=== PATIENT | female | born 1960 | race Caucasian/White ===

== ENCOUNTER 2018-08-02 09:06 | Day surgery (SDC) | payer OTHER ==
[2018-08-02] MEDS ORDERED: ASPIRIN EC 325 MG TAB PO ONE (09:10)
[2018-08-02] MEDS ORDERED: FAMOTIDINE 20 MG TAB PO ONE (09:10)
[2018-08-02] MEDS ORDERED: NS 1,000 ML IV ONE (09:10)
[2018-08-02] MEDS ORDERED: DIAZEPAM 5 MG TAB PO ONE (09:10)
[2018-08-02] MEDS ORDERED: diphenhydrAMINE 25 MG CAP PO ONE (09:10)
--- NOTE | 2018-08-02 10:06 | PDANEPAE ---
ANE History of Present Illness MARJ ANE Past Medical History - Cardiovascular History Hx CHF / Valvular Disease: Yes ANE Review of Systems Review of Systems: palpitations, sob - Exercise capacity Exercise capacity: <4 METS ANE Patient History - Allergies Allergies/Adverse Reactions: No Known Allergies Allergy (Unverified 08/02/18 09:09) - Home Medications Home medications: home medication list seen and reviewed - Smoking Hx Smoking Status: Heavy smoker ANE Labs/Vital Signs - Vital Signs Vital Signs: reviewed preoperatively; see RN documention for details ANE Physical Exam - Airway Neck exam: FROM Mallampati Score: Class 1 Mouth exam: normal dental/mouth exam - Pulmonary Pulmonary: no respiratory distress - Cardiovascular Cardiovascular: regular rate and rhythym - ASA Status ASA Status: III ANE Anesthesia Plan Total IV Anesthesia: Yes
--- NOTE | 2018-08-02 10:35 | PDHPUP ---
History & Physical Update H&P update statement: This history and physical update is based on an assessment of the patient which was completed after admission or registration (within 24 hours), but prior to the surgery/procedure. Giulia presents for MARJ and LHC in anticipation of MV repair with Dr. Chairez in [facility] setting of MVP with severe MR. Risks and benefits of MARJ and LHC discussed in detail. Consents signed. H&P update: H&P reviewed & patient examined, no change in patient's condition since H&P completed
[2018-08-02] MEDS ORDERED: LIDOCAINE 1% 300 MG/30 ML SDV ONE (10:43)
[2018-08-02] MEDS ORDERED: IOPAMIDOL (ISOVUE-370) 150 ML BTL IV ONE (10:44)
[2018-08-02] MEDS ORDERED: LIDOCAINE 2% 5 ML SDV ONE (11:04)
[2018-08-02] MEDS ORDERED: PROPOFOL/EMULSION 500 MG/50 ML BOTTLE IV ONE ×4 (11:04→12:15)
[2018-08-02 11:12] LABS: INR 1.02 (0.83-1.16)
[2018-08-02 11:15] LABS: PLATELET COUNT 165 10^3/uL (150-400)
[2018-08-02] MEDS ORDERED: PROPOFOL 200 MG/20 ML VIAL ONE (11:51)
[2018-08-02] MEDS ORDERED: HYDROCODONE/APAP 5/325 TAB PO PRN (12:30)
[2018-08-02] MEDS ORDERED: ATROPINE SULFATE 1 MG/10 ML SYR IVP PRN (12:30)
[2018-08-02] MEDS ORDERED: OXYCODONE/APAP 5/325 TAB PO PRN (12:30)
[2018-08-02] MEDS ORDERED: NITROGLYCERIN 0.4 MG BTL SL PRN (12:30)
[2018-08-02] MEDS ORDERED: ONDANSETRON 4 MG/2 ML VIAL IVP PRN (12:30)
--- NOTE | 2018-08-02 13:12 | CPR ---
[f rep st] NONINVASIVE CARDIAC PROCEDURE REPORT DATE OF PROCEDURE: 08/02/2018 PROCEDURE PERFORMED: Transesophageal echocardiogram. INDICATION FOR PROCEDURE: Mitral valve prolapse with severe mitral regurgitation in anticipation of minimally invasive robotically assisted mitral valve repair. DESCRIPTION OF PROCEDURE: After informed consent was obtained for transesophageal echocardiogram, bi te block was placed. The patient was sedated with propofol with the assistance of Anesthesia. Once appropriate level of sedation was achieved, MARJ probe was passed without incident. MARJ probe was use d to take images of the mitral valve cue 30 degrees in 180-degree arc. Please see echo report for fu ll details. Patient tolerated the procedure well. There were no postoperative complications. MARJ probe was enrike michaela without incident. FINDINGS: 1. P2 and P3 posterior leaflet prolapse with severe mitral regurgitation with myxomatous mitral valv e. 2. Severe left atrial enlargement. /[id number]/MODL
--- NOTE | 2018-08-02 13:17 | CPIP ---
[f rep st] INVASIVE CARDIAC PROCEDURE DATE OF PROCEDURE: 08/02/2018 PROCEDURE: Cardiac catheterization. INDICATION FOR PROCEDURE: Preoperative evaluation in anticipation of mitral valve repair in the sett ing of mitral valve prolapse and severe mitral regurgitation. DESCRIPTION OF PROCEDURE: After informed consent was obtained for left heart catheterization, the francisco abraham was brought to the cardiac catheterization lab where she was prepped and draped in sterile fash ion. Using 1% lidocaine, the right groin was anesthetized. Using the micropuncture and modified Ayanna polina technique, 6-Bur[place] catheter was placed in the right common femoral artery without complicatio ns. A JL4 catheter was initially used to cannulate the left main. This was unsuccessful. This was exchanged over a guidewire for a JL3.5 catheter. JL3.5 catheter was used to cannulate the left main. Images of the left coronary anatomy were obtained in multiple projections. JL3.5 catheter was exch anged over a guidewire for JR4 catheter. JR4 catheter was used to cannulate the right coronary arter y. JR4 catheter was used to take images of the right coronary anatomy in multiple projections. JR c atheter was exchanged over a guidewire for angled pigtail catheter. Angled pigtail catheter was used to cross the aortic valve. Left ventriculogram was performed. LVEDP was assessed. There was no ev idence of gradient on pull-back. Angled pigtail catheter was removed over a guidewire. Right common femoral artery angiography was obtained demonstrating appropriate placement of the sheath appropriat e for Angio-Seal deployment. Patient underwent successful Angio-Seal deployment without evidence of hematoma. FINDINGS: 1. Left main normal size and caliber. Bifurcates into left anterior descending and left circumflex coronary artery. 2. Left anterior descending is a large-caliber vessel. There are medium-sized 1st and 2nd diagonal branches. There is no evidence of coronary disease within the left anterior descending or diagonal b ranches. 3. Circumflex vessel is a nondominant vessel. There is a large 1st obtuse marginal branch. There i s no evidence of coronary disease within the circumflex or obtuse marginal branch. 4. Right coronary artery is a dominant vessel that bifurcates into PDA and PLV branch. There is no evidence of coronary disease within the right coronary artery. HEMODYNAMICS: LVEF 65% to 70%. LVEDP 9 mmHg. Aortic valve gradient none. CONCLUSION: 1. Normal coronary arteries. 2. Normal left ventricular function. Normal left ventricular end-diastolic pressure at 9 mmHg. 3. Successful Angio-Seal deployment. /[id number]/MODL
--- NOTE | 2018-08-02 17:32 | ECHO ---
[email or web address] [address] Main: [phone] Echocardiography Examination Transesophageal Name: JOSSY BOTELLO MR#: [id number] Study Date: 08/02/2018 Study Time: 11:20 AM Date of : 1960 Age: 58 year(s) Height: ( ) Weight: ( ) BSA: Gender: Female Examination: MARJ Contrast: Image Quality: Adequate Rhythm: Heart Rate: BP: / Indication: Eval Mitral Valve Procedure Staff Referring Physician: Tank Pumper Panelboard: Ava Simon TAYLER Reading Physician: Anibal Escalante MD Requesting Provider: Ordering Physician: Anibal Escalante Indication: Eval Mitral Valve Acute complication: None Measurements Additional Vessels AV/MV Label Value Normal Value Label Value Normal Value AoAsc 3 cm AV PGmax 4 mmHg AV Vmax 1 m/s Conclusions Left Ventricle: EF range is estimated at 60 % - 65 %. Left Atrium: The left atrium is mildly dilated. Mitral Valve: Prolapse of P1 and P2. Thickened myxomatous mitral valve. Seveve eccentric jete of MR. Severe mitral regurgitation. Tricuspid Valve: Mild tricuspid regurgitation. Pericardium: Patient: JOSSY BOTELLO Study Date: 08/02/2018 Page 1 of 2 11:20 AM No pericardial effusion. Findings Left Ventricle: Left ventricle is normal in size. Normal global systolic left ventricular function. EF range is estimated at 60 % - 65 %. Right Ventricle: Right ventricular systolic function is normal. Left Atrium: The left atrium is mildly dilated. Left Atrium Appendage: Good color flow doppler in the left atrial appendage. No thrombus is identified. IAS: Normal appearing atrial septum. Mitral Valve: Prolapse of P1 and P2. Thickened myxomatous mitral valve. Seveve eccentric jete of MR. Severe mitral regurgitation. There is mitral thickening. There is mitral valve prolapse. 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 Aortic leaflets are structurally normal. Trivial aortic regurgitation is present. There is no aortic stenosis. Tricuspid Valve: Tricuspid valve leaflets are structurally normal. Mild tricuspid regurgitation. Pulmonic Valve: Pulmonic leaflets are normal in appearance. No significant pulmonic valve regurgitation is evident. Aorta: The ascending aorta measures 3.0 cm. Ascending aorta is normal in size. Descending aorta is normal in size. Pericardium: No pericardial effusion. Exam Details Procedure Ordered: MARJ Procedure Status: Routine study Image Quality: Adequate Consent: Risks, alternatives of procedure explained to patient, informed consent obtained Probe Insertion: Attending insurance sales manager Facility Location: [employer] (No Signature Object) Patient: JOSSY BOTELLO Study Date: 08/02/2018 Page 2 of 2 11:20 AM [id number]
--- NOTE | 2018-08-03 15:16 | CPEKG ---
Test Reason : OPEN Blood Pressure : / mmHG Vent. Rate : 092 BPM Atrial Rate : 093 BPM P-R Int : 139 ms QRS Dur : 077 ms QT Int : 372 ms P-R-T Axes : 060 046 031 degrees QTc Int : 461 ms Sinus rhythm Confirmed by Joanne Campos ([id number]) on 08/03/2018 3:16:24 PM Referred By: Anibal Escalante Confirmed By:Joanne Campos
--- NOTE | 2018-08-06 09:57 | POSTANESTH ---
Post Anesthetic Evaluation Cardiovascular Status: Similar to Pre-Op Cond Respiratory Status: Similar to Pre-op Cond. Level of Consciousness/Mental Status: Can Participate in Eval, Mildly Sleepy, Arousable Pain Control: Adequate, Prn Tx Ordered Nausea/Vomiting Control: Adequate, Prn Tx Ordered Complications Possibly Related to Anesthesia: None Noted
== END 2018-08-02 16:30 | disposition home or self-care (01) ==
LOC: FCATH 09:06
PROVIDERS: ATTEND Internal Medicine Cardiovascular Disease
PROC: B2111ZZ Fluoroscopy of Multiple Coronary Arteries using Low Osmolar Contrast (ICD-10-PCS; principal; 2018-08-02)
PROC: B2151ZZ Fluoroscopy of Left Heart using Low Osmolar Contrast (ICD-10-PCS; principal; 2018-08-02)
PROC: 4A023N8 Measurement of Cardiac Sampling and Pressure, Bilateral, Percutaneous Approach (ICD-10-PCS; principal; 2018-08-02)
PROC: B245ZZ4 Ultrasonography of Left Heart, Transesophageal (ICD-10-PCS; principal; 2018-08-02)
DX: Z01.810 Encounter for preprocedural cardiovascular examination (principal); I34.0 Nonrheumatic mitral (valve) insufficiency; I47.2 Ventricular tachycardia; I47.1 Supraventricular tachycardia; F17.210 Nicotine dependence, cigarettes, uncomplicated; Z82.49 Family history of ischemic heart disease and other diseases of the circulatory system
CPT/HCPCS: C1760; J1644; J2704; Q9967

== ENCOUNTER 2018-09-10 06:02 | Inpatient (IN) | payer OTHER ==
[~2018-09-10 06:02] MED LIST: CARDIOPLEGIC SOLUTION 1,052.8 ML PF ONE; INSULIN REGULAR HUMAN 100 UNIT in NS 100 ML IV ONE; MANNITOL 25% 12.5 GM/50 ML VIAL IVP ONE; NOREPINEPHRINE BITARTRATE 16 MG in NS 250 ML IV ONE; PHENYLEPHRINE HCL 50 MG in NS 250 ML IV ONE
[2018-09-10] MEDS ORDERED: DOBUTamine/DEXTROSE 250 ML IV ONE (06:41)
[2018-09-10] MEDS ORDERED: niCARdipine/NACL 200 ML IV ONE (06:41)
[2018-09-10] MEDS ORDERED: CITRATE DEXTROSE SOLN 500 ML BAG MISC ONE (06:41)
[2018-09-10] MEDS ORDERED: LIDOCAINE 1% 2 ML INJ ID PRN (06:41)
[2018-09-10] MEDS ORDERED: ceFAZolin 2 GM/DEXTROSE 100 ML IV ONE (06:41)
[2018-09-10] MEDS ORDERED: AMINOCAPROIC ACID 5 GM/20 ML VIAL IV ONE (06:41)
[2018-09-10] MEDS ORDERED: LR 1,000 ML IV ONE (06:42)
--- NOTE | 2018-09-10 06:54 | PDGENHP ---
History and Physical - Chief Complaint elective cardiac surgery - History of Present Illness This is a pleasant healthy female who presents today for elective mitral valve surgery. She was evaluated in full consultation in our clinic on 07/26/18. TTE with MVP and severe MR and an EF 60-65%. At that time, it was noted that she had intermittent episodes of lightheadedness and dizziness with rapid, regular heartbeat lasting several seconds. ZIO patch monitor without atrial fibrillation but with 33 runs of symptomatic SVT and an episode of 10-beat NSVT. [facility] without CAD. No changes to her health since seen in clinic. She had a friend pass away after heart surgery this past week which has added anxiety. History Information - Allergies/Home Medication List Allergies/Adverse Reactions: No Known Allergies Allergy (Verified 08/28/18 14:51) Home Medications: C/E/Zn/Cu/OM3/DHA/EPA/LUT/ZEAX [Preservision Areds 2 Softgel] 2 each PO DAILY [Last Taken Unknown] Multivitamins [Multivitamin (*)] 1 each PO DAILY 08/28/18 [Last Taken Unknown] I have personally reviewed and updated: family history, medical history, social history, surgical history - Surgical History Reports: no pertinent surgical hx - Family History Additional family history: family history of CAD - Social History Smoking Status: Former smoker (recently quit) Review of Systems Review of Systems: ROS: 2-9 pt reviewed & negative except for what was stated in HPI & below Physical Exam Physical Exam: Temp Pulse Resp BP Pulse Ox 37.1 C 78 16 134/87 H 95 09/10/18 06:46 09/10/18 06:46 09/10/18 06:46 09/10/18 06:46 09/10/18 06:46 Constitutional: no apparent distress, appears nourished Eyes: PERRL Ears, Nose, Mouth, Throat: moist mucous membranes, hearing normal, ears appear normal Cardiovascular: systolic murmur Respiratory: no respiratory distress, no rales or rhonchi Gastrointestinal: soft, non-tender abdomen Skin: warm, normal color Neurologic: AAOx3, sensation intact bilaterally Psychiatric: interacting appropriately, anxious Lab Data & Imaging Review Patient ABO/Rh O POSITIVE 09/08/18 11:58 Antibody Screen NEGATIVE 09/08/18 11:58 Imaging Review: [facility] 08/02/18 Normal coronary arteries Normal LVEF AMRJ 08/02/18 P2&P3 posterior leaflet prolapse with severe MR/myxomatous MV Severe LAE EKG 08/02/18 NSR Assessment & Plan Assessment: Severe MR w preserved EF Severe LAE SVT NSVT Tobacco use disorder, recently quit Clean coronaries History of blood disorder Plan: Elective robotic assisted MVR/R (tissue) with Dr. Copeland
[2018-09-10] MEDS ORDERED: MILRINONE/DEXTROSE/100 ML BAG IV ONE (07:01)
[2018-09-10] MEDS ORDERED: AMINOCAPROIC ACID 5 GM/20 ML VIAL ONE ×2 (07:01→07:04)
[2018-09-10] MEDS ORDERED: CALCIUM CHLORIDE 1 GM/10 ML INJ ONE ×2 (07:01→07:03)
[2018-09-10] MEDS ORDERED: PROTAMINE SULFATE 50 MG/5 ML VIAL IVP ONE (07:01)
[2018-09-10] MEDS ORDERED: DOPamine/DEXTROSE 400 MG/250 ML BAG IV ONE (07:02)
[2018-09-10] MEDS ORDERED: HEPARIN 10,000 UNIT/10 ML MDV (1,000 UNIT/ML) ONE ×2 (07:02→07:04)
[2018-09-10] MEDS ORDERED: ADENOSINE 6 MG/2 ML VIAL ONE (07:02)
[2018-09-10] MEDS ORDERED: NA BICARBONATE 50 MEQ/50 ML VIAL ONE (07:02)
[2018-09-10] MEDS ORDERED: niCARdipine/NACL/200 ML BAG IV ONE ×2 (07:02→16:12)
[2018-09-10] MEDS ORDERED: AMIODARONE HCL 150 MG/3 ML VIAL ONE ×2 (07:02→07:04)
[2018-09-10] MEDS ORDERED: ceFAZolin 1 GM VIAL ONE (07:03)
[2018-09-10] MEDS ORDERED: ALBUMIN 5% 250 ML BOTTLE IV ONE ×2 (07:03→23:50)
[2018-09-10] MEDS ORDERED: NITROGLYCERIN/D5W 50 MG/250 ML BOTTLE IV ONE (07:03)
[2018-09-10] MEDS ORDERED: MAGNESIUM SULFATE 1 GM/2 ML VIAL ONE (07:04)
[2018-09-10] MEDS ORDERED: LIDOCAINE 2% 100 MG/5 ML SYR ONE (07:04)
[2018-09-10] MEDS ORDERED: CITRATE DEXTROSE SOLN 500 ML BAG ONE (07:04)
[2018-09-10] MEDS ORDERED: methylPREDNISolone SOD SUCC 1 GM/8 ML VIAL ONE (07:05)
[2018-09-10] MEDS ORDERED: MIDAZOLAM 2 MG/2 ML VIAL IVP ONE (07:30)
--- NOTE | 2018-09-10 07:31 | PDANEPAE ---
ANE History of Present Illness here for robotic mitral valve repair ANE Past Medical History - Cardiovascular History Hx Hypertension: No Hx Arrhythmias: No Hx Chest Pain: No Hx Coronary Artery / Peripheral Vascular Disease: No Hx CHF / Valvular Disease: Yes Hx Palpitations: No - Pulmonary History Hx COPD: No Hx Asthma/Reactive Airway Disease: No Hx Recent Upper Respiratory Infection: No Hx Oxygen in Use at Home: No Hx Sleep Apnea: No Sleep Apnea Screening Result - Last Documented: Negative - Neurologic History Hx Cerebrovascular Accident: No Hx Seizures: No Hx Dementia: No - Endocrine History Hx Diabetes: No - Renal History Hx Renal Disorders: No - Liver History Hx Hepatic Disorders: No - Neurological & Psychiatric Hx Hx Neurological and Psychiatric Disorders: No - Cancer History Hx Cancer: No - Congenital Disorder History Hx Congenital Disorders: No - GI History Hx Gastrointestinal Disorders: No - Other Health History Other Health History: macula degeneration - Chronic Pain History Chronic Pain: No - Surgical History Prior Surgeries: angiogram 08/02/18. appendectomy 13 yrs ago ANE Review of Systems Review of systems is: negative Review of Systems: - Exercise capacity Exercise capacity: >=4 METS METS (RN): 4 METS ANE Patient History - Allergies Allergies/Adverse Reactions: No Known Allergies Allergy (Verified 08/28/18 14:51) - Home Medications Home medications: home medication list seen and reviewed Home Medications: C/E/Zn/Cu/OM3/DHA/EPA/LUT/ZEAX [Preservision Areds 2 Softgel] 2 each PO DAILY [Last Taken Unknown] Multivitamins [Multivitamin (*)] 1 each PO DAILY 08/28/18 [Last Taken Unknown] - NPO status NPO Status: no food or drink >8 hours NPO Since - Liquids (Date): 09/09/18 NPO Since - Liquids (Time): 21:00 NPO Since - Solids (Date): 09/09/18 NPO Since - Solids (Time): 20:00 - Anes Hx Anes Hx: no prior problems - Smoking Hx Smoking Status: Former smoker (recently quit) - Family Anes Hx Family Hx Anesthesia Complications: none ANE Labs/Vital Signs - Vital Signs Blood Pressure: 134/87 Heart Rate: 78 Respiratory Rate: 16 O2 Sat (%): 95 Height: 170.18 cm Weight: 77.111 kg ANE Physical Exam - Airway Neck exam: FROM Mallampati Score: Class 1 Mouth exam: normal dental/mouth exam - Pulmonary Pulmonary: no respiratory distress - Cardiovascular Cardiovascular: regular rate and rhythym - ASA Status ASA Status: III ANE Anesthesia Plan Anesthesia Plan: general endotracheal anesthesia Lines/Monitors: arterial line, central line, MARJ Specialized Airway: double lumen tube
[2018-09-10] MEDS ORDERED: PROPOFOL/EMULSION 500 MG/50 ML BOTTLE IV ONE ×2 (07:41→17:22)
[2018-09-10] MEDS ORDERED: ROCURONIUM 100 MG/10 ML VIAL ONE (07:41)
[2018-09-10] MEDS ORDERED: fentaNYL 250 MCG/5 ML INJ ONE ×2 (07:43→08:45)
[2018-09-10] MEDS ORDERED: DEXAMETHASONE 4 MG/ML VIAL ONE ×2 (08:43)
[2018-09-10] MEDS ORDERED: KETAMINE 200 MG/20 ML VIAL ONE (08:44)
--- NOTE | 2018-09-10 13:58 | POSTOPPROG ---
Post Op Note Date of Operation: 09/10/18 Surgeon: Kingston Chairez Assistant: Ced BORREGO Anesthesiologist: Alberto SALDIVAR Anesthesia: GET(General Endotracheal) Pre-op Diagnosis: severe MR Post-op Diagnosis: same Procedure: robotic assisted MVRepair (p2 rxn, 28 physio),repair of iatrogenic RV perf Findings: IVC cannula perforation Inf/Abcess present in the surg proc area at time of surgery?: No Depth: Organ Space EBL: 100-500 Complications: RV perf Drains: Other (right pleural chest tube) Specimen(s): p2 MV
[2018-09-10] MEDS ORDERED: MAGNESIUM HYDROXIDE 30 ML UDCUP PO PRN (14:00)
[2018-09-10] MEDS ORDERED: ACETAMINOPHEN 325 MG TAB PO PRN (14:00)
[2018-09-10] MEDS ORDERED: CEPACOL LOZENGE PO PRN (14:00)
[2018-09-10] MEDS ORDERED: D50W 25 GM/50 ML SYR IVP PRN ×3 (14:00→23:12)
[2018-09-10] MEDS ORDERED: PANTOPRAZOLE SODIUM 40 MG VIAL IVP ONE (14:00)
[2018-09-10] MEDS ORDERED: NS 1,000 ML IV SCH (14:00)
[2018-09-10] MEDS ORDERED: BISACODYL 10 MG SUPP PR PRN (14:00)
[2018-09-10] MEDS ORDERED: DEXMEDETOMIDINE HCL 400 MCG in NS 100 ML IV SCH (14:00)
[2018-09-10] MEDS ORDERED: ACETAMINOPHEN 650 MG SUPP PR PRN (14:00)
[2018-09-10] MEDS ORDERED: MEPERIDINE 25 MG/0.5 ML AMP IVP PRN (14:00)
[2018-09-10] MEDS ORDERED: INSULIN REGULAR HUMAN 100 UNIT in NS 100 ML IV SCH ×3 (14:00→23:12)
[2018-09-10] MEDS ORDERED: POTASSIUM Cl (KCl) 50 ML IV PRN (14:00)
[2018-09-10] MEDS ORDERED: SODIUM CL NASAL 45 ML BTL EACHNARE PRN (14:00)
[2018-09-10] MEDS ORDERED: POLYETHYLENE GLYCOL 3350 17 GM PKT PO PRN (14:00)
[2018-09-10 14:59] LABS: PLATELET COUNT 86 10^3/uL (150-400)
[2018-09-10] MEDS: ALBUMIN 5% 250 ML IV PRN ×2 (15:13→15:31)
[2018-09-10 15:27] LABS: PROTIME(PATIENT) 17.4 SEC (12.0-15.0)
--- NOTE | 2018-09-10 15:32 | PDMN ---
Medical Necessity Medical necessity: [facility] S290 cardiac valve replacement or repair 5 days: OP: robotic assist MVR repair of iatrogenic RV perf. AUTH# [id number] PER ARAM Warner FOR CPT 42747 INPT-LOS 09/10/18 TILL 09/14/18
[2018-09-10] MEDS: fentaNYL 100 MCG/2 ML INJ IVP PRN ×4 (15:35→22:43)
--- NOTE | 2018-09-10 16:13 | PDCONSULT ---
Marine Engineer Cpvec Note: ASSESSMENT 58-year-old female with severe MR status post MVR whose postop course was complicated by respiratory failure and bleeding. # severe MR status post MVR 09/10/2018 # postoperative bleeding and acute blood loss anemia. Coagulopathy is active being corrected. Dr. Ren will follow closely to determine whether she needs to go back to the OR # coagulopathy with thrombocytopenia and ongoing blood loss. # postop respiratory failure. Longer than expected. Still requiring ventilatory support. PLAN # continue lung protective ventilation # will place new arterial line given respiratory failure need for frequent ABGs plus possible return to OR # correct coagulopathy with blood products # consider checking TEG # Feeding - NPO # Analgesia APAP, fentanyl # Sedation Precedex # Thromboprophylaxis - holding until coagulopathy resolves, SCDs. # Head of bed elevated # Ulcer prophylaxis - ppi # Glucose SSI # Skin no skin breakdown # Delirium - delirium precautions I was asked by Dr. Ren of cardiothoracic surgery to evaluate this patient for ICU care in the setting of respiratory failure and acute blood loss anemia Chief complaint Shortness of breath CHRIS Platt is a very pleasant previously healthy 4-year-old female who presented with palpitations and shortness of Breath. She was evaluated in the outpatient setting found to have severe MR. A Zio patch monitor did not demonstrate significant arrhythmias. Coronary angiogram was without obstructive coronary disease. Given progressive symptoms and echocardiographic findings she underwent elective TTE. Her immediate postoperative course was complicated by respiratory failure and bleeding. Further history was unable to be obtained secondary to patient's mental status and critical illness Allergies No known drug allergies Past medical history Severe MR Medication A complete medication reconciliation was performed. See EMR for full details Family history CAD, CVA Social history Two children, non smoker Review of systems Unable to obtain due to patient's mental status Physical exam Afebrile, pulse 88, blood pressure 162/74, respiratory rate 20 on 40% FiO2 VT PC plus GEN: Intubated sedated NEURO: Sedated, opens eyes to gentle stimulation. No focal deficits. HEENT: The ET tube in place, trachea midline, right IJ access NECK: supple, trachea midline CHEST midline sternotomy scar clean dry and intact CVS: rrr no m/r/g, no JVD appreciated PULM: CTAB, no wheezes/rales/rhonchi ABD: soft, NT, ND, NABS EXT: no swelling, no cyanosis, full ROM SKIN: warm, dry, intact, no rash PSYCH CAM negative, appropriate affect Labs Reviewed Imaging reviewed Patient is critical ill due to life threatening organ dysfunction and is at high risk for decompensation and . Total critical care time, excluding procedures: 82 min which was spent at bedside evaluating the patient, discussions with nursing and cardio thoracic surgery, titrating ventilator.
[2018-09-10] MEDS ORDERED: niCARdipine/NACL 200 ML IV SCH (16:30)
--- NOTE | 2018-09-10 16:51 | SUROPNOTE ---
DICK Operative Report - Surgery Procedure: Left arterial line placement with ultrasound guidance Physician: Dr. Slim Nicholas Anesthesiologist: N/A Anesthesia Type: N/A Indication: respiratory failure requiring frequent ABGs Consent: The patient was counseled as to the risks, benefits, and alternatives to the procedure and they agreed to proceed. Signed consent was obtained and placed into chart. Time-Out: Prior to the procedure, time-out was performed to verify patient's name, date of , correct procedure, correct side, correct site, correct patient position, correct radiographic data, and special equipment required. Pre-Op Dx: Severe MR, respiratory failure Post-Op Dx: Severe MR, respiratory failure Medications: none/1 cc of 1% lidocaine Description: Hand hygiene was performed. The site was selected as the optimal site for procedure, given considerations of sterility and safety. The wrist region was prepped with Chloraprep prior to catheter insertion and with maximal sterile precautions (including gown, sterile gloves, mask, cap, and large sterile draping). Under real-time ultrasound guidance the radial artery was visualized and pulsatile flow was noted and was subsequently cannulated with a 20 gauge catheter over the needle. Next the wire was passed through needle into artery. Catheter was secured in place and dressed. Arterial waveform was noted from the transduced pressure signal. EBL: <1 ml Complications: none Specimens Sent: none Implants: N/A F/U: routine arterial line care S Torey Nicholas MD Pulmonary and Critical Care Medicine Pager [phone]
[2018-09-10] MEDS: MUPIROCIN 2% 22 GM OINT NS SCH ×3 (16:55→22:50)
[2018-09-10] MEDS: ceFAZolin 2 GM/DEXTROSE 100 ML IV SCH ×2 (16:57→18:18)
--- NOTE | 2018-09-10 17:18 | POSTANESTH ---
Post Anesthetic Evaluation Cardiovascular Status: Tx Over/Under Hydration Respiratory Status: Requires Airway Assist Level of Consciousness/Mental Status: Moderately Sleepy Pain Control: Adequate, Prn Tx Ordered Nausea/Vomiting Control: Adequate, Prn Tx Ordered Complications Possibly Related to Anesthesia: None Noted Notes: ongoing chest tube output, patient to return to OR for take-back and look for bleeding
--- NOTE | 2018-09-10 17:20 | PDANEPAE ---
ANE History of Present Illness patient for take-back sternotomy for bleeding post op MVR ANE Past Medical History - Cardiovascular History Hx Hypertension: No Hx Arrhythmias: No Hx Chest Pain: No Hx Coronary Artery / Peripheral Vascular Disease: No Hx CHF / Valvular Disease: Yes Hx Palpitations: No - Pulmonary History Hx COPD: No Hx Asthma/Reactive Airway Disease: No Hx Recent Upper Respiratory Infection: No Hx Oxygen in Use at Home: No Hx Sleep Apnea: No Sleep Apnea Screening Result - Last Documented: Negative - Neurologic History Hx Cerebrovascular Accident: No Hx Seizures: No Hx Dementia: No - Endocrine History Hx Diabetes: No - Renal History Hx Renal Disorders: No - Liver History Hx Hepatic Disorders: No - Neurological & Psychiatric Hx Hx Neurological and Psychiatric Disorders: No - Cancer History Hx Cancer: No - Congenital Disorder History Hx Congenital Disorders: No - GI History Hx Gastrointestinal Disorders: No - Other Health History Other Health History: macula degeneration - Chronic Pain History Chronic Pain: No - Surgical History Prior Surgeries: angiogram 08/02/18. appendectomy 13 yrs ago ANE Review of Systems Review of systems is: negative Review of Systems: - Exercise capacity METS (RN): 4 METS ANE Patient History - Allergies Allergies/Adverse Reactions: No Known Allergies Allergy (Verified 08/28/18 14:51) - Home Medications Home medications: home medication list seen and reviewed Home Medications: C/E/Zn/Cu/OM3/DHA/EPA/LUT/ZEAX [Preservision Areds 2 Softgel] 2 each PO DAILY [Last Taken Unknown] Multivitamins [Multivitamin (*)] 1 each PO DAILY 08/28/18 [Last Taken Unknown] - NPO status NPO Status: no food or drink >8 hours NPO Since - Liquids (Date): 09/09/18 NPO Since - Liquids (Time): 21:00 NPO Since - Solids (Date): 09/09/18 NPO Since - Solids (Time): 20:00 - Smoking Hx Smoking Status: Former smoker (recently quit) - Family Anes Hx Family Hx Anesthesia Complications: none ANE Labs/Vital Signs - Labs Result Diagrams: 09/10/18 14:45 - Vital Signs Vital Signs: reviewed preoperatively; see RN documention for details Blood Pressure: 113/75 Heart Rate: 90 Respiratory Rate: 11 O2 Sat (%): 100 Height: 170.18 cm Weight: 77.111 kg ANE Physical Exam - Airway Mouth exam: ETT in situ - Pulmonary Pulmonary: no respiratory distress - Cardiovascular Cardiovascular: regular rate and rhythym - ASA Status ASA Status: III ANE Anesthesia Plan Anesthesia Plan: general endotracheal anesthesia (lines and ETT in situ from earlier today)
[2018-09-10] MEDS ORDERED: PHENYLEPHRINE HCL 100 MCG/ML SYR ONE (17:23)
[2018-09-10] MEDS: FAMOTIDINE 20 MG/NACL 50 ML IV SCH ×2 (17:32→22:49)
[2018-09-10] MEDS: CHLORHEXIDINE GLUCONATE 15 ML UDL PO SCH ×2 (17:56→22:50)
[2018-09-10] MEDS ORDERED: fentaNYL 100 MCG/2 ML INJ ONE ×2 (18:31→19:50)
[2018-09-10] MEDS ORDERED: ROCURONIUM 50 MG/5 ML VIAL ONE (19:06)
[2018-09-10 19:33] LABS: INR 1.3 (0.83-1.16); PROTIME(PATIENT) 15.6 SEC (12.0-15.0)
--- NOTE | 2018-09-10 19:42 | POSTOPPROG ---
Post Op Note Date of Operation: 09/10/18 Surgeon: Kingston Chairez Assistant: Lavinia Ng PA-C Anesthesiologist: Dr David Dominguez Anesthesia: GET(General Endotracheal) (with bronchial yo) Pre-op Diagnosis: elevated chest tube output Post-op Diagnosis: probable chest wall bleeder Indication: R/O active bleeding of surgical site Procedure: Take back mediastinal exploration with thoracoscopic assisted inspection Findings: No formed clot, all suture lines intact, no active bleeding Inf/Abcess present in the surg proc area at time of surgery?: No EBL: 50-100 Bowel Protocol: N/A Clean Closure Performed: Yes Drains: Other (36 Fr rt pleural tube and pleurovac replaced)
[2018-09-10] MEDS: ONDANSETRON 4 MG/2 ML VIAL IVP PRN (21:23)
[2018-09-10] MEDS: METOCLOPRAMIDE 10 MG/2 ML VIAL IVP PRN (22:44)
[2018-09-10] MEDS ORDERED: D5W 1,000 ML IV SCH (23:10)
[2018-09-10] MEDS ORDERED: D50W 25 GM/50 ML VIAL IVP PRN (23:30)
[2018-09-11] MEDS ORDERED: ALBUMIN 5% 250 ML IV ONE (00:30)
[2018-09-11] MEDS: fentaNYL 100 MCG/2 ML INJ IVP PRN ×2 (00:51→04:42)
[2018-09-11] MEDS: ceFAZolin 2 GM/DEXTROSE 100 ML IV SCH ×3 (02:15→18:26)
[2018-09-11] MEDS: ONDANSETRON 4 MG/2 ML VIAL IVP PRN (02:42)
[2018-09-11] MEDS: ONDANSETRON DISINTEGRATING 4 MG TAB PO PRN ×2 (07:18→20:03)
[2018-09-11] MEDS: HYDROCODONE/APAP 5/325 TAB PO PRN ×3 (07:18→20:03)
--- NOTE | 2018-09-11 07:19 | SOAPPROG ---
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 Objective: Vital Signs Temp Pulse Resp BP Pulse Ox 37.0 C 104 H 12 118/57 L 100 09/11/18 07:00 09/11/18 07:00 09/11/18 07:00 09/11/18 07:00 09/11/18 07:00 Laboratory Results 09/11/18 01:35 09/11/18 01:35 09/10/18 09/11/18 09/12/18 05:59 05:59 05:59 Intake Total 3999.1 Output Total 2846 Balance 1153.1 PT 15.6 SEC (12.0-15.0) H 09/10/18 19:00 INR 1.30 (0.83-1.16) H 09/10/18 19:00 GEN: NAD, sitting upright HEENT: NCAT, dry MM, Kan[place] RESP: NC oxygen 2L, CXR good CARDIAC: ST EXTREMITIES: R art line CDI, trace LE edema : camilo patent CT 1150/330 over 12 ICD10 Worksheet Patient Problems: Problems Problem Status Onset Acute blood loss anemia Acute S/P mitral valve repair Acute Left atrial dilatation Chronic Myxomatous mitral valve regurgitation Chronic
[2018-09-11] MEDS: CHLORHEXIDINE GLUCONATE 15 ML UDL PO SCH (09:08)
[2018-09-11] MEDS: METOCLOPRAMIDE 10 MG/2 ML VIAL IVP PRN (09:49)
[2018-09-11] MEDS: FAMOTIDINE 20 MG/NACL 50 ML IV SCH (09:55)
[2018-09-11] MEDS: METOPROLOL TARTRATE 25 MG TAB PO SCH ×2 (09:55→20:04)
[2018-09-11] MEDS: MUPIROCIN 2% 22 GM OINT NS SCH ×2 (10:19→20:09)
--- NOTE | 2018-09-11 11:44 | PDINTPN ---
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 Resolved. Taken back to OR for thoracoscopic eval and presumed source was chest wall bleeder. Coagulopathy corrected. # coagulopathy. corrected # postop respiratory failure. resolved. # SVT- rare events on zio patch monitor preoperatively # h/o tobacco use. quit prior to surgery PLAN # agree with removing PA catheter, arterial line # ambulation # delirium precautions # monitor for s/sx of bleeding. # agree with transferring to PCU later today if she remains compensated # Feeding - advance diet # Analgesia APAP, oxy # Sedation none # Thromboprophylaxis - SCDs, ambulation # Head of bed elevated # Ulcer prophylaxis - ppi # Glucose SSI # Skin no skin breakdown # Delirium - delirium precautions Subjective: Taken back to the OR yesterday for ongoing bleeding. Thoracoscopic evaluation without obvious source. Presumed due to chest wall bleeding at prior port site. Resolved. Coagulopathy corrected. Respiratory failure resolved and was extubated. Patient feels better. Mild pain and incision site but overall doing well. Chest tube in place. Tightening. Blood pressure well controlled. No nausea, vomiting, fevers or chills. Objective: Vital Signs Temp Pulse Resp BP Pulse Ox 37.0 C 99 22 H 104/59 L 99 09/11/18 08:00 09/11/18 10:00 09/11/18 10:00 09/11/18 10:00 09/11/18 10:00 Laboratory Results 09/11/18 01:35 09/11/18 01:35 09/10/18 09/11/18 09/12/18 05:59 05:59 05:59 Intake Total 3999.1 Output Total 2846 Balance 1153.1 PT 15.6 SEC (12.0-15.0) H 09/10/18 19:00 INR 1.30 (0.83-1.16) H 09/10/18 19:00 Physical Exam - Physical Exam General Appearance: alert, no apparent distress EENT: PERRL/EOMI, normal ENT inspection, pharynx normal Neck: non-tender, full range of motion, supple Respiratory: chest non-tender, lungs clear, normal breath sounds Cardiac/Chest: normal peripheral pulses, regular rate, rhythm, other (Right midline incision site with bandage clean dry intact. Chest tube in place.), No edema Abdomen: normal bowel sounds, non-tender Back: Normal inspection Skin: normal color, warm/dry, No cyanosis Extremities: normal range of motion, non-tender, normal inspection Neuro/Psych: no motor/sensory deficits, alert, normal mood/affect ICD10 Worksheet Patient Problems: Problems Problem Status Onset Acute blood loss anemia Acute S/P mitral valve repair Acute Left atrial dilatation Chronic Myxomatous mitral valve regurgitation Chronic
[2018-09-11] MEDS ORDERED: FUROSEMIDE 20 MG/2 ML VIAL IVP ONE (13:44)
[2018-09-11] MEDS ORDERED: traMADol 50 MG TAB PO PRN (13:48)
[2018-09-11] MEDS ORDERED: ASPIRIN 81 MG CHEWABLE TAB TUBE PRN (14:00)
[2018-09-11] MEDS ORDERED: PANTOPRAZOLE SODIUM 40 MG TAB PO SCH (14:00)
[2018-09-11] MEDS: ASPIRIN 81 MG CHEWABLE TAB PO SCH (14:01)
--- NOTE | 2018-09-11 14:59 | ASMTCMCOM ---
CM Note CM Note Notes: Pt is a 58 yo F who underwent Mitral Valve Repair. PT rec Home with front wheeled walker, OT eval pending. Pt's family at bedside and supportive. CM to follow. Plan: TBD Date Signed: 09/11/2018 02:58 PM Electronically Signed By:MAKSIM Lechuga
[2018-09-11] MEDS ORDERED: SENNOSIDES/DOCUSATE SODIUM TAB PO SCH (21:00)
[2018-09-12 03:58] LABS: PLATELET COUNT 123 10^3/uL (150-400)
--- NOTE | 2018-09-12 07:20 | SOAPPROG ---
SOAP Progress Note Assessment/Plan: Assessment: POD#2 Robotic-assisted MVRepair (28mm annuloplasty ring, p2 resection, sliding leaflet plasty); iatrogenic RV perforation s/p primary repair POD#2 Return to the OR for mediastinal bleeding, no overt bleeding Myxomatous severe mitral valve regurgitation s/p complex MVRepair -pre-op EF 60-65% w severe LAE -plan for anticoagulation with full dose ASA alone -chest tube removed POD#1 Acute blood loss anemia with coagulopathy s/p multiple transfusions -history of blood disorder of unknown etiology (worked up at [facility]) -stable H/H and plt count last 24 hrs without further PRBC History of paroxysmal SVT/NSVT -found on pre-op ZIO patch -AF prophylaxis with BB as tolerated Tobacco use disorder -recent cessation DVT ppx -SCDs, early ambulation Plan: Cont gentle diuresis. Cont metoprolol tartrate 12.5 mg BID. Switch from baby ASA to full strength ASA tomorrow. Baseline postop echo tomorrow. Cont inc activity as tolerated. Dispo - Anticipate home without services in 2 days. 09/12/18 07:17 Subjective: Doing ok. Tolerating light activity w min reliance on walker. Satisfactory analgesia. Nervous about prospect of home tomorrow, but thinks she'll be ready by Sat. Objective: Vital Signs Temp Pulse Resp BP Pulse Ox 36.6 C 118 H 18 98/62 L 91 L 09/12/18 03:46 09/12/18 03:46 09/12/18 03:46 09/12/18 03:46 09/12/18 03:46 Laboratory Results 09/12/18 03:40 09/12/18 03:40 09/11/18 09/12/18 09/13/18 05:59 05:59 05:59 Intake Total 3999.1 2188 Output Total 2846 900 Balance 1153.1 1288 PT 15.6 SEC (12.0-15.0) H 09/10/18 19:00 INR 1.30 (0.83-1.16) H 09/10/18 19:00 Holding SR/ST. Insufficient BP for uptitration BB. Relatively low BP w reasonable UOP and stable renal fx. Borderline suppl O2 req. CXR-> mild pulm vasc congestion, bibasilar atelectasis, tiny rt apical PTX ( volume loss) - Pending Discharge Pending Discharge Within 48 Hours: Yes Pending Discharge Date: 09/14/18 Pending Discharge Time: 11:00 Physical Exam - Physical Exam General Appearance: alert, no apparent distress Respiratory: crackles (bases), other (rt thoracot and port sites CDI) Cardiac/Chest: regular rate, rhythm, tachycardia Peripheral Pulses: 2+: dorsalis-pedis (R), dorsalis-pedis (L) Abdomen: normal bowel sounds, non-tender, soft Skin: warm/dry Extremities: swelling (1+ gen), other (rt groin incision CDI, no hematoma. Left groin incision clean and dry, stitch intact.) ICD10 Worksheet Patient Problems: Problems Problem Status Onset Acute blood loss anemia Acute S/P mitral valve repair Acute Left atrial dilatation Chronic Myxomatous mitral valve regurgitation Chronic
[2018-09-12] MEDS ORDERED: SENNOSIDES/DOCUSATE SODIUM TAB PO PRN (09:00)
[2018-09-12] MEDS: METOPROLOL TARTRATE 25 MG TAB PO SCH ×2 (09:07→20:04)
[2018-09-12] MEDS: ASPIRIN 81 MG CHEWABLE TAB PO SCH (09:10)
[2018-09-12] MEDS: POTASSIUM CL 20 MEQ TAB PO SCH (09:11)
[2018-09-12] MEDS: FUROSEMIDE 40 MG TAB PO SCH (09:12)
[2018-09-12] MEDS: PANTOPRAZOLE SODIUM 40 MG TAB PO SCH (09:12)
[2018-09-12] MEDS: MUPIROCIN 2% 22 GM OINT NS SCH (09:15)
--- NOTE | 2018-09-12 11:00 | ASMTCMCOM ---
CM Note CM Note Notes: Pt admitted 09/10/18 for mitral valve surgery. Returned to surgery yesterday to address bleeding issues; resolved. Post-op respiratory failure has also since resolved. Pt lives with her life partner De Deshpande. Daughter Jennifer Gomes also lives locally. De is retired and able to take care of pt's needs at home. Pt normally does not use any assistive devices at home but will probably D/C home with a walker. PT and OT recommend home with no needs. CM will be available should needs arise. CM DC plan: Home with no needs Date Signed: 09/12/2018 11:00 AM Electronically Signed By:Tricia May.RAZ
[2018-09-12] MEDS ORDERED: FUROSEMIDE 20 MG/2 ML VIAL IVP ONE (15:00)
[2018-09-12] MEDS ORDERED: POTASSIUM CL 20 MEQ TAB PO ONE (15:00)
--- NOTE | 2018-09-12 23:38 | POSTANESTH ---
Post Anesthetic Evaluation Cardiovascular Status: Normal, Stable Respiratory Status: Normal, Stable Level of Consciousness/Mental Status: Can Participate in Eval Pain Control: Adequate, Prn Tx Ordered Nausea/Vomiting Control: Adequate, Prn Tx Ordered Complications Possibly Related to Anesthesia: None Noted
--- NOTE | 2018-09-13 07:24 | SOAPPROG ---
SOAP Progress Note Assessment/Plan: Assessment: POD#3 Robotic-assisted MVRepair (28mm annuloplasty ring, p2 resection, sliding leaflet plasty); iatrogenic RV perforation s/p primary repair POD#3 Return to the OR for mediastinal bleeding, no overt bleeding Myxomatous severe mitral valve regurgitation s/p complex MVRepair -pre-op EF 60-65% w severe LAE -antithrombotic prophylaxis with full dose ASA alone -chest tube removed POD#1 Acute blood loss anemia with coagulopathy s/p multiple transfusions -history of blood disorder of unknown etiology (worked up at [facility]) -stable H/H last 48 hrs without further PRBC History of paroxysmal SVT/NSVT -found on pre-op ZIO patch -AF prophylaxis with BB as tolerated Tobacco use disorder -recent cessation DVT ppx -SCDs, early ambulation Plan: Cont gentle diuresis. Cont metoprolol tartrate 12.5 mg BID. Switch from baby ASA to full strength ASA. Baseline postop echo. Cont inc activity as tolerated. Dispo - Anticipate home without services this afternoon. 09/13/18 07:22 Subjective: Feels well. Off O2. Walking independently without assist device. Satisfactory analgesia with Tramadol. Wants to go home. Objective: Vital Signs Temp Pulse Resp BP Pulse Ox 36.8 C 114 H 20 106/64 97 09/13/18 04:00 09/13/18 04:00 09/13/18 04:00 09/13/18 04:00 09/13/18 04:00 Laboratory Results 09/13/18 06:00 09/13/18 06:00 09/12/18 09/13/18 09/14/18 05:59 05:59 05:59 Intake Total 2188 1040 Output Total 900 1650 Balance 1288 -610 PT 15.6 SEC (12.0-15.0) H 09/10/18 19:00 INR 1.30 (0.83-1.16) H 09/10/18 19:00 Physical Exam - Physical Exam General Appearance: alert, no apparent distress Respiratory: decreased breath sounds (sl diminished BS rt base), other (rt CT dressing CDI, port sites and groins CDI) Cardiac/Chest: regular rate, rhythm, other Skin: warm/dry Extremities: swelling (trace) ICD10 Worksheet Patient Problems: Problems Problem Status Onset Acute blood loss anemia Acute S/P mitral valve repair Acute Left atrial dilatation Chronic Myxomatous mitral valve regurgitation Chronic
[2018-09-13] MEDS ORDERED: ASPIRIN EC 325 MG TAB PO SCH (09:00)
--- NOTE | 2018-09-13 11:00 | PDDCSUM ---
Discharge Summary Discharge Summary: DATE OF ADMISSION: 09/10/18 DATE OF DISCHARGE: 09/13/18 DISPOSITION: Home, self-care PRINCIPAL ADMISSION DIAGNOSIS: Symptomatic severe mitral regurgitation PRINCIPAL DISCHARGE DIAGNOSES: 1. Status post robotic assisted complex mitral valve repair 2. Acute expected blood loss anemia with coagulopathy HISTORY OF PRESENT ILLNESS: 58 yo female with paroxysmal palpitations and dizziness found to have a myxomatous mitral valve associated with moderate posterior leaflet prolapse, severe mitral regurgitation, and mild left atrial enlargement. Admitted for elective mitral valve repair via a minimally invasive approach. PERTINENT PAST MEDICAL HISTORY: ZIO patch monitor notable for multiple short runs of SVT and one 10 beat run of VT. No atrial fibrillation or atrial tachycardia. Remote blood disorder of unknown etiology (worked up at [facility]) MEDICATIONS ON ADMISSION: MVI daily, Preservision suppl daily ALLERGIES/SENSITIVITIES: NKDA CONSULTANTS: Pulmonology/critical care ([place]) PROCEDURES/IMAGIN/28 (OHair): Robotic assisted complex mitral valve repair (P2 resection, sliding leaflet plasty, and annuloplasty with 28 mm Physio I ring). Primary repair of iatrogenic right ventricular perforation by IVC cannula. Primary repair of femoral vessels after decannulation. 09/10 (OHair): Return to OR for thoracoscopic assisted mediastinal exploration for bleeding. No active bleeding found. 09/13 (White): Transthoracic echocardiogram: Nl BiV size and systolic fx. LVEF 65 -70%. Fixed posterior mitral leaflet w mild chordal REMINGTON and mild MS (PG 17). No sig MR or LVOT gradient. ABBREVIATED HOSPITAL COURSE BY ACTIVE PROBLEM LIST: 1. Sx severe MR - Amenable to complex repair. Procedure prolonged by repair of RV perf by IVC cannula and complicated by coagulopathy with elevated chest tube output necessitating return to OR for exploration and washout. No cardiac bleeding found and friable chest wall port site suspected. Moderate volume overload well tolerated. Aggressive diuresis limited by relatively low BP. Antithrombotic prophylaxis with ASA alone. 2. Acute expected blood loss anemia with coagulopathy - Exacerbated by prolonged pump run. Stable s/p 3u PRBC, 2u FFP and 2u Plt. 3. History of PSVT/NSVT - Postop rhythm sinus tachycardia. Use of BB limited by relatively low BP. DISCHARGE CLINICAL INFORMATION: Rt thoracotomy and port sites CDI, sutured. Rt chest tube site draining small amount clear serous fluid. Rt groin incision CDI. Left groin incision clean and dry, suture intact. HR 90s-100s. SBP 90s-100s. SpO2 94% RA. Wt 5 kg above admission at 77.1 kilos. Hgb 9.6, HCT 29, Plt 123, Na 136, K 4.2, Cr 0.8 DISCHARGE MEDICATIONS: As on admission with the following adjustments: NEW prescriptions: 1. ASA EC 325 mg daily 2. Lasix 20 mg daily until back to baseline weight and no swelling 3. Klor-Con 10 meq daily with lasix 4. Metoprolol tartrate 12.5 mg BID 5. Tramadol 50 mg to 1 tab q 4-6 hrs prn incisional discomfort FOLLOW UP APPOINTMENTS: 1. CV surgery: with Dr Copeland at [facility] on 10/01 at 9:30 am. 2. Cardiology: with Dr Escalante at [facility] within 4-6 weeks. Appointment to be established during surgical visit. FOLLOW UP TESTING: CXR prior to surgical appointment.
[2018-09-13] MEDS: FUROSEMIDE 40 MG TAB PO SCH (11:16)
[2018-09-13] MEDS: METOPROLOL TARTRATE 25 MG TAB PO SCH (11:17)
[2018-09-13] MEDS: POTASSIUM CL 20 MEQ TAB PO SCH (11:17)
[2018-09-13] MEDS: PANTOPRAZOLE SODIUM 40 MG TAB PO SCH (11:18)
[2018-09-13 11:49] VITALS: BP 94/45
--- NOTE | 2018-09-13 11:49 | CPEKG ---
Test Reason : OPEN Blood Pressure : / mmHG Vent. Rate : 097 BPM Atrial Rate : 097 BPM P-R Int : 193 ms QRS Dur : 079 ms QT Int : 390 ms P-R-T Axes : 068 070 016 degrees QTc Int : 496 ms Sinus rhythm Left atrial enlargement Borderline prolonged QT interval Confirmed by Seamus Pierson ([id number]) on 09/13/2018 11:49:31 AM Referred By: Kingston Chairez Confirmed By:Seamus Pierson
--- NOTE | 2018-09-13 12:17 | ECHO ---
[email or web address] [address] Main: [phone] Echocardiography Examination Transthoracic Name: JOSSY BOTELLO MR#: Study Date: 09/13/2018 Study Time: 08:59 AM Date of : 1960 Age: 58 year(s) Height: 170.2 cm (67 in.) Weight: 82.55 kg (182 lb.) BSA: 1.94 m2 Gender: Female Examination: Echo Contrast: Image Quality: Adequate Rhythm: Heart Rate: 93 bpm BP: 95 mmHg/60 mmHg Indication: baseline post op echo s/p post Robotic MV repair #28 physio ring Procedure Staff Referring Physician: Brick Catcher: Martha Luz RD Reading Physician: Kingston Valencia MD Requesting Provider: Ordering Physician: Lavinia Ng Indication: baseline post op echo s/p post Robotic MV repair #28 physio ring Measurements Chambers AV/MV Label Value Normal Value Label Value Normal Value LVOT Vmax 1.23 m/s (0.7m/s - 1.1m/s) AV PGmax 8 mmHg LVOTd 2 cm (1.8cm - 2cm) AV Vmax 1.37 m/s LVDd, 2D 4.4 cm (3.9cm - 5.3cm) JAMMIE (Vmax) 2.8 cm2 LVDs, 2D 3.1 cm (2.1cm - 4cm) MV VTI 67.7 cm IVSd, 2D 1 cm (0.6cm - 1.1cm) MV PGmax 24 mmHg LVPWd, 2D 0.8 cm MV PGmean 17 mmHg LVEF, BP 64 % (55% - 70%) MV PHT 0.08 s LVEF, 2D 58 % (54% - 74%) MVA PHT 2.8 cm2 RVDd, 2D 2.8 cm (1.9cm - 3.8cm) MV PHT 80 ms TAPSE 1.8 cm TV/PV LA Volume, BP 73 ml (22ml - 52ml) Label Value Normal Value LADs, 2D 4.4 cm (2.7cm - 3.8cm) RA Pressure 10 mmHg LAESV index, BP 37.6 ml/m2 RVSP 33 mmHg RA Area 17.8 cm2 TR Pmax 23 mmHg Additional Vessels TR Vmax 2.42 m/s Label Value Normal Value PV PGmax 3 mmHg AoAsc 3.3 cm PV Vmax, Caliper 0.83 m/s (0.6m/s - 0.9m/s) AoRoot, 2D 3 cm (1.4cm - 2.6cm) Patient: JOSSY BOTELLO MRN: Study Date: 09/13/2018 Page 1 of 3 08:59 AM Conclusions Normal left ventricular size and systolic function. LVEF estimated at 65-70% and calculated at 64 % by Vanessa's. Normal left ventricular free wall thickness. Mildly dilated left atrium. Normal RA and RV dimensions. The patient is known to have had a robotic mitral valve repair with placement of a 20. 8 physio ring. The posterior leaflet is fixed and immobile. There are increased transmitral gradients noted of between 15 and 17 mm Hg at a resting heart rate of 93 beats per minute. There is no significant mitral regurgitation. During systole chordal Dash is noted. This does not provoke a dynamic LVOT gradient. The aortic valve is structurally and functionally normal. Normal-appearing tricuspid valve. Mild tricuspid regurgitation with an estimated RVSP of 33 mmHg. No pericardial effusion. Findings Left Ventricle: Left ventricle is normal in size. Normal global systolic left ventricular function. EF evaluated by EF (biplane Vanessa's). The ejection fraction, measured by Simpsons method, is 64 %. EF range is estimated at 65 % - 70 %. Left ventricle wall thickness is normal. There are no regional wall motion abnormalities. Unable to assess Diastolic Dysfunction due to MVR or MV ring. Right Ventricle: Normal size right ventricle. Right ventricular systolic function is normal. Left Atrium: The left atrium is mildly dilated. Right Atrium: The right atrium is mildly dilated. Mitral Valve: The anterior leaflet is moderately thickened/myxomatous and the posterior leaflet is fixed. There is both anterior mitral leaflet and chordal DASH without a sigificant LVOT obstruction.. No mitral regurgitation. Mitral valve repair with #28 physio ring. Mitral Valve Measurements MV PGmean is 17 mmHg. MVA PHT is 2.8 cm2. Aortic Valve: The aortic valve is structurally normal and trileaflet. No aortic valve regurgitation. There is no aortic stenosis. Tricuspid Valve: Tricuspid valve leaflets are structurally normal. Mild tricuspid regurgitation. No tricuspid valve stenosis. Right Ventricular systolic pressure is measured at 33 mmHg. Pulmonary artery pressure normal. Pulmonic Valve: Pulmonic leaflets are structurally normal. No pulmonic valve regurgitation is evident. Aorta: The aortic root size in 2D measures 3.0 cm. The aortic root exhibits normal size. The ascending aorta measures 3.3 cm. Ascending aorta is normal in size. Aorta Measurements AoRoot, 2D is 3.0 cm. IVC: The inferior vena cava is dilated. The respirophasic change in diameter is more than 50%. Pericardium: No pericardial effusion. Exam Details Procedure Ordered: Echo Procedure Status: Routine study Image Quality: Adequate Facility Location: Cardiac Echo 1 (No Signature Object) Patient: JOSSY BOTELLO MRN: Study Date: 09/13/2018 Page 2 of 3 08:59 AM Patient: JOSSY BOTELLO MRN: Study Date: 09/13/2018 Page 3 of 3 08:59 AM [id number]
--- NOTE | 2018-09-13 12:37 | ASDISCHSUM ---
Discharge Information Plan Status:Home with No Needs Medically Cleared to Leave: Discharge Date: CM D/C Disposition:Home, Routine, Self-Care ADT D/C Disposition:Home, Routine, Self-Care Projected Discharge Date: Transportation at D/C: Discharge Delay Reason: Follow-Up Date: Discharge Slot: Final Diagnosis: Placement Information Patient Contact Information Contact Name:EMELINA Relationship:Life Partner Address: Work Phone: City: [facility] Phone: State/ComVibe Code: Email: Financial Information [facility] Desc:[facility] Primary Plan Number:[id number] Secondary Plan Desc: Secondary Plan Number: Assessment Information LACE LACE Length of stay for Answers: 3 days current admission Acuity / Level of Answers: Yes Care: Did the patient have an inpatient admission? Comorbidities - select Answers: Congestive heart failure all that apply # of Emergency department Answers: 0 visits in the last 6 months Score: 8 Date Signed: 09/13/2018 12:35 PM Electronically Signed By:MAKSIM Lechuga [facility] Progress Note CM Note CM Note Notes: Pt is a 58 yo F who underwent Mitral Valve Repair. PT rec Home with front wheeled walker, OT eval pending. Pt's family at bedside and supportive. CM to follow. Plan: TBD Date Signed: 09/11/2018 02:58 PM Electronically Signed By:MAKSIM Lechuga [facility] CM Progress Note CM Note CM Note Notes: Pt admitted 09/10/18 for mitral valve surgery. Returned to surgery yesterday to address bleeding issues; resolved. Post-op respiratory failure has also since resolved. Pt lives with her life partner De Deshpande. Daughter Jennifer Gomes also lives locally. De is retired and able to take care of pt's needs at home. Pt normally does not use any assistive devices at home but will probably D/C home with a walker. PT and OT recommend home with no needs. CM will be available should needs arise. CM DC plan: Home with no needs Date Signed: 09/12/2018 11:00 AM Electronically Signed By:Tricia Zee Case Management Discharge Plan Note Case Management Discharge Discharge Order Complete? Answers: Yes Patient to Obtain Answers: via Family Medications Transportation Arranged Answers: Family/Friends Discharge Comments Notes: Pt is getting discharged independently. Family to transport and assist with outpatient follow-up. Pt cleared by PT/OT. Date Signed: 09/13/2018 12:35 PM Electronically Signed By:MAKSIM Lechuga Intervention Information
--- NOTE | 2018-09-14 11:40 | GOP ---
[f rep st] OPERATIVE REPORT DATE OF OPERATION: 09/10/2018 SURGEON: Kingston Chairez MD CORRECTIONAL PROGRAM SPECIALIST: FELISHA Mendoza. PREOPERATIVE DIAGNOSIS: Postoperative hemorrhage. POSTOPERATIVE DIAGNOSIS: Postoperative hemorrhage. PROCEDURE PERFORMED: Right thoracoscopy for exploration for bleeding. FINDINGS: INDICATIONS: This 58-year-old woman underwent mitral valve repair earlier today. Her postoperative course was complicated by coagulopathy. We did correct a significant coagulopathy with platelets and fresh frozen plasma, although patient continues to have ongoing hemorrhage. She is taken back to [facility] operating room now for exploration. DESCRIPTION OF PROCEDURE: Patient taken to the operating room and placed on the operating room table in the supine position. After induction general anesthesia, a bronchial yo was placed on the r ight side. After sterile prep and drape, we opened the port site on the right. There was essentiall y no blood in the chest. There was no clot in the chest. This is in spite of the fact that there clayton d been active bleeding in the ICU. We looked around for over an hour, irrigated the chest, inspected all the port sites, and then used electrocautery to cauterize the port sites. I suspect the most koo spicious one was the transthoracic site. This was adjacent to the chest tube. If this was bleeding previously, it was certainly stopped now, and the blood may have drained directly into the chest tube , which would explain no accumulation of blood in the chest. Once the chest had been copiously irrig ated, the lung was reinflated. The chest tube had been changed. We then reapproximated the ribs wit h #1 pericostal sutures. Subcutaneous musculature and skin were closed with running Vicryl suture. The patient tolerated this well was and returned to the ICU in stable condition. /[id number]/MODL
--- NOTE | 2018-09-14 11:55 | GOP ---
[f rep st] OPERATIVE REPORT DATE OF OPERATION: 09/10/2018 SURGEON: Kingston Chairez MD MINING MANAGER: Jorge L Coughlin P.A.-C. PREOPERATIVE DIAGNOSIS: Severe mitral regurgitation. POSTOPERATIVE DIAGNOSIS: Severe mitral regurgitation. PROCEDURE PERFORMED: Robotic assisted mitral valve repair with resection of the P2 portion of the po sterior leaflet, reconstruction and placement of an annuloplasty with a 28 mm Physio ring. FINDINGS: Pericardial space was free. The aorta was soft. The valve had a fairly complex pathology involving the posterior leaflet. A large section of the posterior leaflet, including the P2 portion , had a very large central cleft. There was also retraction of the posterior leaflet into the ventri eliza and as well as prolapse of several smaller segments. The anterior leaflet was relatively normal. INDICATIONS: This 58-year-old woman has had increasing dyspnea on exertion. She was found to have s evere mitral regurgitation. There are multiple jets. The valve is clearly degenerative. DESCRIPTION OF PROCEDURE: Patient was taken to the operating room and placed on the operating table in the supine position. After induction of general anesthesia and double-lumen endotracheal tube intubation, patient was prepped and draped sterilely. A utility port was created in the right chest. Ports were created for the left, right, and 3rd arm of the robot. C utdown on the right common femoral artery and vein was performed. Next, access of the right subclavi an vein was obtained using the Seldinger technique. A 15-[place] [employer] cannula was placed into the right subclavian vein and positioned in the superior vena cava. The patient was then fully hepar inized. We cannulated the common femoral artery with an 8 mm cannula graft. We were unable to acces s the common femoral vein on the right side; however, we percutaneously accessed the common femoral v ein on the left and placed a long 21-[place] cannula in the right atrium under echocardiographic rhina nce. Both the anesthesiologist and myself had visual confirmation of cannulae in the right atrium. Next, the robotic system was docked. Cardiopulmonary bypass was instituted. We placed an aortic catherine t vent and a transthoracic cross-clamp, and the heart was then arrested with a liter of [place] solu tion. The left atrium was opened. The valve was inspected. The findings were described above. We had to resect a large portion of the posterior leaflet as it was retracted at a major cleft. We gregory nstructed this with a 4-0 [place] and sized it to a 28 mm ring. The posterior leaflet was somewhat t all, but provided good coaptation surface for the anterior leaflet. We tested this, and the valve ap peared to be functioning appropriately with a saline flush intraoperatively. Next, we closed left at rium and removed the cross-clamp. We were the patient from bypass when we noticed a large amount of dark blood emanating from the anterolateral wall. We then went back on bypass and noted t hat there seemed to be a small perforation of the venous cannula through what was presumably the righ t ventricle. Two pursestring sutures were then created. These were placed. The venous cannula was retracted. The sutures were tied, and this appeared to resolve the problem. Next, we from cardiopulmonary bypass, and on transesophageal echo, there was no residual mitral regurgitation. Le ft ventricular function was well maintained. The protamine was then administered, and patient was de cannulated. Postprocedural, we had a good look around and good hemostasis was achieved; however, the clotting was somewhat minimal, so we ordered some platelets. The chest tube was secured in place. The wounds were closed in layers with Vicryl suture, and the patient was returned to the ICU in stabl e condition. /[id number]/MODL
== END 2018-09-13 15:00 | disposition home or self-care (01) | DRG 220 ==
LOC: F3E 06:02 → F2N 08:38 → F2W 09-11 14:21
PROVIDERS: ADMIT Thoracic Surgery (Cardiothoracic Vascular Surgery); ATTEND Thoracic Surgery (Cardiothoracic Vascular Surgery)
PROC: 30233N1 Transfusion of Nonautologous Red Blood Cells into Peripheral Vein, Percutaneous Approach (ICD-10-PCS; 2018-09-10)
PROC: 30233R1 Transfusion of Nonautologous Platelets into Peripheral Vein, Percutaneous Approach (ICD-10-PCS; 2018-09-10)
PROC: 30233L1 Transfusion of Nonautologous Fresh Plasma into Peripheral Vein, Percutaneous Approach (ICD-10-PCS; 2018-09-10)
PROC: 02UG0JZ Supplement Mitral Valve with Synthetic Substitute, Open Approach (ICD-10-PCS; principal; 2018-09-10 07:45)
PROC: 02BG0ZZ Excision of Mitral Valve, Open Approach (ICD-10-PCS; principal; 2018-09-10 07:45)
PROC: 8E0W0CZ Robotic Assisted Procedure of Trunk Region, Open Approach (ICD-10-PCS; principal; 2018-09-10 07:45)
PROC: 5A1221Z Performance of Cardiac Output, Continuous (ICD-10-PCS; principal; 2018-09-10 07:45)
PROC: 0WJ Anatomical Regions, General, Inspection (ICD-10-PCS; 2018-09-10 07:45)
PROC: 03HC33Z Insertion of Infusion Device into Left Radial Artery, Percutaneous Approach (ICD-10-PCS; 2018-09-10 07:45)
DX: I34.0 Nonrheumatic mitral (valve) insufficiency (principal); D62 Acute posthemorrhagic anemia; D68.9 Coagulation defect, unspecified; F17.200 Nicotine dependence, unspecified, uncomplicated; Z82.49 Family history of ischemic heart disease and other diseases of the circulatory system
CPT/HCPCS: 82435-PO; 82565-PO; 82947-PO; 83605-ER; 84132-PO; 84295-PO; 84520-PO; 85014-ER; 97116-GP; 97162-GP; 97165-GO; 97530-GO; 97530-GP; 97535-GO; C1768; J0153; J0282; J0690; J1100; J1250; J1265; J1644; J1815; J1940; J2001; J2150; J2250; J2260; J2370; J2405; J2704; J2720; J2765; J2930; J3010; J3475; J3480; P9016; P9017; P9021; P9035; P9041

== ENCOUNTER → 2018-09-30 | Outpatient (CLI) | payer OTHER | LOC: FIMAGING 11:53 ==